=== PATIENT | female | born 1955 | race Caucasian/White ===

== ENCOUNTER 2018-08-01 20:07 | Inpatient (IN) | payer OTHER ==
--- NOTE | 2018-07-14 22:30 | NUR ---
PT. STILL AWAKE. ENCOURAGED TO CALL FOR ANY HELP SHE MAY NEED. NO SOB. DENIES ANY PAIN AT THIS TIME. CALL LIGHT WITH IN EACH. Addendum: 08/05/18 at 0208 by Chasidy Rader RN CHARTING FOR 08/04/18
[~2018-08-01] VITALS: Ht 154.9 cm; Wt 36.3 kg
[2018-08-01 20:07] VITALS: BP 92/60
--- NOTE | 2018-08-01 20:10 | NUR ---
62 Y/O F BIBA W/C/O "INCREASED RESPIRATORY EFFORT." PER EMS PT WAS DISCHARGED FROM [facility] YESTERDAY AND WAS TOLD SHE HAS PNUEMONIA. PT C/O SOB TODAY. UPON ASSESSMENT PT RR EVEN/UNLABORED. O2 SAT 95% ON RA. PT DENIES N/V/D; SKIN IS INTACT, PINK/WARM/DRY; PT CACHETIC;AAOX4, PERRL, PT UNABLE TO AMBULATE DUE TO SEVERE WEAKENESS; LUNGS DIMINISHED BL, BREATHING UNLABORED; HR EVEN AND REGULAR, BL PERIPHERAL PULSES PRESENT; BS ACTIVE X4, NO TENDERNESS TO PALPATION, NO HEPATOSPLENOMEGALLY PALPATED, RESONANT TO PERCUSSION; PT DENIES ANY FEVER, CP, OR COUGH AT THIS TIME; PT STATES 0/10 PAIN AT THIS TIME; VSS; PATIENT POSITIONED FOR COMFORT; HOB ELEVATED; BEDRAILS UP X2; BED DOWN. ER MD MADE AWARE OF PTS CONDITION.
--- NOTE | 2018-08-01 20:11 | NUR ---
PT HAS HX OF R BREAST MASTECTOMY, BREAST CA, UTERINE CA, AND PENUMONIA. NKA
--- NOTE | 2018-08-01 20:45 | NUR ---
PT REFUSED TO BE PUT ON A BED CONTEH AND STATES, "I CAN'T GO." PT ALSO REFUSES STRAIGHT CATH AT THIS TIME. DR. LEONARD MADE AWARE,STATED THATS FINE.
--- NOTE | 2018-08-01 21:03 | NUR ---
X-RAY AT BEDSIDE
[2018-08-01 21:30] LABS: HEMATOCRIT 36.8 % (36-48); HEMOGLOBIN 12.4 g/dL (12.0-16.0); RED BLOOD CELL COUNT(AUTO) 4.27 MIL/uL (4.20-5.40); WHITE BLOOD COUNT (AUTO) 8.1 K/uL (4.8-10.8)
[2018-08-01 21:31] LABS: BASOPHILS % (AUTO) 0.3 % (0.0-2.0); EOSINOPHILS % (AUTO) 2.3 % (0.0-4.0); LYMPHOCYTES % (AUTO) 8.2 % (20.5-51.1); MEAN CORPUSCULAR HEMOGLOBIN 29 pg (27-31); MEAN CORPUSCULAR HGB CONC 34 g/dL (33-37); MEAN CORPUSCULAR VOLUME 86.2 fL (80-94); MONOCYTES % (AUTO) 8.1 % (1.7-9.3); NEUTROPHILS % (AUTO) 81.1 % (42.2-75.2); PLATELET COUNT (AUTO) 347 K/uL (140-450); RED CELL DISTRIBUTION WIDTH 13.8 % (11.6-13.7)
--- NOTE | 2018-08-01 21:38 | NUR ---
EKG PERFORMED AT BEDSIDE. PT COVERED IN GOWN AND BLANKET DURING PROCEDURE WITH FAMILY MEMBER PRESENT. NORMAL SINUS RHYTHM
[2018-08-01 21:43] LABS: PROTHROMBIN TIME 11.5 secs (10.8-13.4)
--- NOTE | 2018-08-01 21:45 | NUR ---
DR. OG MADE AWARE THAT PTS FAMILY WANTS TO TALK TO HIM
[2018-08-01 21:47] LABS: ALBUMIN 2.3 g/dL (3.4-5.0); ANION GAP 9.3 (8-16); CARBON DIOXIDE 26.6 mmol/L (21-32); CREATININE 0.6 mg/dL (0.6-1.3); TOTAL BILIRUBIN 0.3 mg/dL (0.0-1.0)
[2018-08-01 21:51] LABS: POTASSIUM 2.9 mmol/L (3.5-5.1)
--- NOTE | 2018-08-01 22:15 | NUR ---
DR. OG MADE AWARE THAT PT AND FAMILY WANTS TO TALK WITH HIM
--- NOTE | 2018-08-01 22:30 | NUR ---
PT RESTING COMFORTABLY IN BED. NO S/S OF DISTRESS NOTED. FAMILY AT BEDSIDE
--- NOTE | 2018-08-01 22:50 | NUR ---
DR. OG UPDATED ON PTS STATUS
--- NOTE | 2018-08-01 23:00 | NUR ---
DR. OG EVALUATING AT BEDSIDE
[2018-08-01] MEDS ORDERED: cefTRIAXone 1,000 MG VIAL ONE (23:04)
[2018-08-01] MEDS ORDERED: POTASSIUM CHLORIDE 10 MEQ TABER PO ONE (23:55)
[2018-08-02] MEDS: AZITHROMYCIN 500 MG in DEXTROSE 5% 250 ML IV SCH (00:20)
[2018-08-02] MEDS ORDERED: ACETAMINOPHEN 325 MG TAB PO PRN (00:20)
[2018-08-02] MEDS ORDERED: POTASSIUM CHL 20MEQ/D5-NS 1,000 ML IV ONE (00:20)
[2018-08-02] MEDS ORDERED: ONDANSETRON 4 MG/2 ML VIAL IVP PRN (00:20)
--- NOTE | 2018-08-02 00:44 | NUR ---
PT TAKEN TO CT VIA ANTHONY
--- NOTE | 2018-08-02 01:00 | NUR ---
Patient will be admitted to care of DR. RODRIGUEZ. Admited to MED/SURG. Will go to room 105 A. Belongings list completed. Report to LARRY BAUER.
--- NOTE | 2018-08-02 01:00 | NUR ---
PT ESCORTED TO FLOOR VIA W/C WITH RESHMA BAUER. PT AMBULATED TO ROOM 105A. REPORT GIVEN AT BEDSIDE FOR CONTINUITY OF CARE. PT IS AO X 4 AND HER SKIN IS INTACT. PT APPEARS CACHETIC. SHE IS ON 2 LITERS VIA N/C FOR COMFORT. PT IS A 62 YEAR OLD WOMEN WITH A HX OF COPD , RIGHT AND LEFT BREAST CANCER (LYMPH NODES REMOVED IN BREASTS), UTERINE CA, CERVICAL CA, PN. PT HAS A 20 G ON LEFT AC FLUSHED PATENT.
--- NOTE | 2018-08-02 01:30 | NUR ---
PT IN BED WITH SIDE RAILS UP X 2 , PT ANSWERED ADMISSION QUESTIONS AND ORDERED FLUIDS GIVEN VIA IV. PT DENIES PAIN AT THIS TIME AND SAYS SHE JUST WANTS TO SLEEP. PT ORIENTED TO ROOM, BED AND HOSPITAL ROUTINES. LIGHTS OUT AND CALL WORRELL IN REACH,. NO S/S OF PAIN OR DISTRESS NOTED. V/S FOLLOWS : T 98.2 P 85 R 18 B/P 96/68 02 99% WITH 2 L VIA N/C.
[2018-08-02] MEDS ORDERED: AZITHROMYCIN 500 MG INJ VIAL IV ONE (02:03)
--- NOTE | 2018-08-02 02:30 | NUR ---
PT ASLEEP NO S/S OF PAIN OR DISTRESS NOTED NO ADVERSE EFFECTS OF ABT. BED IS LOW AND CALL WORRELL IN REACH. LUNG SOUNDS DIMINISHED ON BASE OF LEFT LUNG , CONSISTENT WITH FINDINGS OF X RAY. B/S HYPOACTIVE. IV SITE FLUSHED PATENT AND RUNNING 5D N/S WITH 20 MEQ AT 80 MLS/HR.
[2018-08-02 03:34] VITALS: BP 96/68
--- NOTE | 2018-08-02 07:33 | NUR ---
GAVE REPORT TO PEDRO RN DAYSHIFT NURSE FOR CONTINUITY OF CARE, PT ASLEEP SIDE RAILS UP X2 CALL WORRELL IN REACH. NO S/S OF NICK OR DISTRESS NOTED.
--- NOTE | 2018-08-02 07:34 | NUR ---
REPORT RECEIVED FROM INSPECTOR [employer] BILL JUAREZ SLEEPING QUIETLY IN NAD, RESP EVEN UNLABORED ON 2L NC, SKIN WARM DRY COLOR WNL, AROUSES EASILY, DENIES ANY PAIN OR DISCOMFORT, PLAN OF CARE REVIEWED, ALL SAFETY MEASURES IN PLACE, WILL CONTINUE TO MONITOR.
[2018-08-02 08:00] VITALS: BP 102/64
--- NOTE | 2018-08-02 08:36 | NUR ---
PATIENT HAS BEEN SCREENED AND CATEGORIZED HIGH NUTRITION RISK. PATIENT WILL BE SEEN WITHIN 1-2 DAYS OF ADMISSION. 08/02/18 08/03/[address]
[2018-08-02] MEDS: ENOXAPARIN 40 MG/0.4 ML SYR SUBQ SCH (09:00)
--- NOTE | 2018-08-02 10:00 | NUR ---
DR. RODRIGUEZ AT BEDSIDE.
--- NOTE | 2018-08-02 10:27 | NUR ---
AM MEDS GIVEN VIA SUBQ. TOLERATED PROCEDURE WELL. NO SOB AND RESPIRATORY DISTRESS NOTED. NO COMPLAINTS OF PAIN.PT VOIDED IN BEDPAN X1. WILL CONTINUE TO MONITOR.
--- NOTE | 2018-08-02 14:15 | NUR ---
PT C/O SOB, INCREASED RR AT 30 BREATHS/MIN, NO WHEEZING UPON AUSCULTATION. INFORMED RT FOR ALBUTEROL VIA NEBULIZATION Q6 PRN DOSE. WILL FOLLOW UP W/ RT AND FREQUENT CHECKS DONE.
--- NOTE | 2018-08-02 14:26 | NUR ---
ADMISSION CHART REVIEW DONE INITIAL REVIEW FAXED TO [facility] [phone] PHONE COOKIE [phone]
--- NOTE | 2018-08-02 14:31 | NUR ---
08/02/18 RD INITIAL ASSESSMENT COMPLETED PLEASE REFER TO NUTRITION ASSESSMENT UNDER CARE ACTIVITY FOR ESTIMATED NUTRITIONAL NEEDS. 1. CONTINUE REGULAR DIET TOLERATED 2. ENCOURAGED INCREASING PO INTAKE 3. RECOMMENDED HIGH CALORIE FOODS LIKE ENSURE AND HEALTH SHAKES 4. PROVIDED EDUCATION TO INCREASE PO INTAKE 5. RD TO FOLLOW-UP 2-3 DAYS, HIGH RISK GISELL FAYE RD
[2018-08-02] MEDS: ALBUTEROL 0.083% 2.5 MG/3 ML NEBU INH PRN (14:45)
--- NOTE | 2018-08-02 14:45 | NUR ---
RT CAME IN EARLIER TO GIVE ALBUTEROL VIA NEBULIZATION. PT AWAKE, ALERT IN BED IN BED RESTING. NO RESPIRATORY DISTRESS. BREATHING EVEN AND UNLABORED. WILL CONTINUE TO MONITOR FOR SOB, RESPIRATORY DISTRESS & OTHER KENNY.
[2018-08-02 16:00] VITALS: BP 94/63
--- NOTE | 2018-08-02 17:10 | NUR ---
DR. GALLOWAY AT BEDSIDE.BRONCHOSCOPY SCHEDULED ON Sunday
--- NOTE | 2018-08-02 18:45 | NUR ---
TALKED TO BERNA HEMPHILL REGARDING POC. SHE'S AWARE PLAN FOR BRONCHOSCOPY. PT SITTING UP, EATING [employer] AND DRINKING STARBUCKS.DENIES ANY PAIN OR DISCOMFORT. WILL CONTINUE TO MONITOR.
--- NOTE | 2018-08-02 19:20 | NUR ---
REPORT RECEIVED FROM TREMAINE BAUER DAYSHIFT NURSE AT BEDSIDE FOR CONTINUITY OF CARE, PT IN STABLE CONDITION.
--- NOTE | 2018-08-02 19:20 | NUR ---
REPORT GIVEN TO PM SHIFT NURSE, PT IN STABLE CONDITION.
[2018-08-02 20:00] VITALS: BP 106/67
--- NOTE | 2018-08-02 20:00 | NUR ---
PT AOX 4, SITTING IN LOW BED WITH SIDE RAILS UP X 2 EATING FAST FOOD BROUGHT IN BY FAMILY. PT C/O OF MODERATE BACK PAIN 04/21 WILL MEDICATE WITH PRN NORCO, V/S AT THIS TIME ARE FOLLOWS : T 97.4 P 98 R 20 B/P 106/67 02 100 WITH 2 L VIA N/C. PT HAS NO S/S OF DISTRESS ANS NO SOB NOTED. IV 20G LEFT F/A INTACT AND SALINE LOCKED.
[2018-08-02] MEDS: HYDROcodone/APAP 5/325 MG 1 TAB TAB PO PRN (20:38)
--- NOTE | 2018-08-02 20:45 | NUR ---
PT RECEIVED PRN NORCO FOR 6/10 PAIN. WILL MONITOR FOR EFFECT.
[2018-08-03] VITALS: BP 90/60
[2018-08-03] MEDS: AZITHROMYCIN 500 MG in DEXTROSE 5% 250 ML IV SCH (00:09)
[2018-08-03] MEDS: DEXT 5% / NACL 0.45% 1,000 ML IV SCH ×2 (00:17→21:12)
--- NOTE | 2018-08-03 00:21 | NUR ---
PT SLEEPING SOUNDLY NO S/S OF PAIN OR DISTRESS NOTED. NEW ORDER NOTED FORM DR. JOSE THE COVERING MD FOR QUADEER, D51/2NS AT 50MLS/HR. ABT ZITHROMAX IN PROGRESS IV SITE FLUSHED PATENT AND NO S/S OF INFILTRATION NOTED. ALL FALLS PRECAUTIONS IN PLACE, AND CALL WORRELL IN REACH.
[2018-08-03 04:00] VITALS: BP 95/63
--- NOTE | 2018-08-03 04:30 | NUR ---
PT ASLEEP IN LOW BED BUT AROUSABLE TO NAME. IV SITE INTACT AND RUNNING D5 AND 1/2 NS AT 50MLS/HR. IV SITE FLUSHED PATENT, NO C/O VOICED AND NO S/S OF PAIN OR DISTRESS NOTED. V/S FOLLOWS T 98.5 P 74 R 18 B/P 95/63 02 99% WITH 2 L VIA N/C. BED LOW, CALL WORRELL IN REACH AND ALL FALLS PRECAUTIONS IN PLACE.
[2018-08-03 07:16] LABS: BASOPHILS % (AUTO) 0.8 % (0.0-2.0); EOSINOPHILS # (AUTO) 0.2 K/uL (0-0.4); HEMATOCRIT 31.2 % (36-48); HEMOGLOBIN 10.6 g/dL (12.0-16.0); LYMPHOCYTES # (AUTO) 0.6 K/uL (2.5-16.5); LYMPHOCYTES % (AUTO) 11.7 % (20.5-51.1); MEAN CORPUSCULAR HEMOGLOBIN 29 pg (27-31); MEAN CORPUSCULAR HGB CONC 34 g/dL (33-37); MEAN CORPUSCULAR VOLUME 84.4 fL (80-94); MONOCYTES # (AUTO) 0.5 K/uL (0.8-1.0); MONOCYTES % (AUTO) 10.1 % (1.7-9.3); NEUTROPHILS # (AUTO) 3.8 K/uL (1.8-7.7); NEUTROPHILS % (AUTO) 73.4 % (42.2-75.2); PLATELET COUNT (AUTO) 258 K/uL (140-450); RED BLOOD CELL COUNT(AUTO) 3.69 MIL/uL (4.20-5.40); RED CELL DISTRIBUTION WIDTH 14.7 % (11.6-13.7); WHITE BLOOD COUNT (AUTO) 5.2 K/uL (4.8-10.8)
--- NOTE | 2018-08-03 07:20 | NUR ---
REPORT GIVEN TO TRELL RN DAYSHIFT NURSE FOR CONTINUITY OF CARE, PT IN STABLE CONDITION
--- NOTE | 2018-08-03 07:21 | NUR ---
RECEIVED BEDSIDE REPORT FROM METAL BENCH PATTERNMAKER. NO DISTRESS NOTED. PATIENT HAS LEFT AC IT IS CLEAN DRY AND INTACT. BED ON LOWEST POSITION. PATIENT HAS CALL LIGHT WITHIN REACH. WILL CONTINUE TO MONITOR
[2018-08-03] MEDS: ALBUTEROL 0.083% 2.5 MG/3 ML NEBU INH PRN (07:25)
[2018-08-03 08:00] VITALS: BP 96/66
[2018-08-03 08:04] LABS: ALBUMIN 1.7 g/dL (3.4-5.0); ANION GAP 10.5 (8-16); CARBON DIOXIDE 25.4 mmol/L (21-32); CREATININE 0.3 mg/dL (0.6-1.3); MAGNESIUM 1.5 mg/dL (1.8-2.4); POTASSIUM 3.9 mmol/L (3.5-5.1); TOTAL BILIRUBIN 0.2 mg/dL (0.0-1.0)
[2018-08-03] MEDS: ENOXAPARIN 40 MG/0.4 ML SYR SUBQ SCH (09:08)
--- NOTE | 2018-08-03 11:15 | NUR ---
IS RESTING IN BED DENIES ANY PAIN. NO DISTRESS NOTED PATIENT IS ON 2L OF OXYGEN VIA NC.
[2018-08-03] MEDS: HYDRAGUARD CREAM TP SCH (13:00)
--- NOTE | 2018-08-03 13:00 | NUR ---
PATIENT IS RESTING IN BED. IV ON L AC IS INFUSING 50ML/HR OF D5NS. NO SIGNS OF INFILTRATION. PATIENT DENIES ANY PAIN. CALL LIGHT WITHIN REACH. WILL CONTINUE TO MONITOR.
--- NOTE | 2018-08-03 15:30 | NUR ---
PATIENT IN BED RESTING COMFORTABLY WATCHING TELEVISION, DENIES ANY PAIN AT THIS TIME. VITAL SIGNS WITHIN NORMAL LIMITS. HAS CALL LIGHT WITHIN REACH. BED ON LOWEST POSITION.
[2018-08-03 15:45] VITALS: BP 91/58
[2018-08-03] MEDS ORDERED: MAG SULF 2000 MG/WATER PREMIX 50 ML IV ONE (17:50)
--- NOTE | 2018-08-03 19:20 | NUR ---
ENDORSED PATIENT TO DIE DESIGNER NURSE. PATIENT IS RESTING QUIETLY. IN STABLE CONDITION.
--- NOTE | 2018-08-03 19:25 | NUR ---
RECEIVED FROM AM RN IN BED AWAKE AND ALERT. IVF SITE TO LAC #20 INTACT AND NO INFILTRATION NOTED. RE-ORIENTED TO CALL LIGHT USE FOR ANY HELP SHE MAY NEED OR IF IN PAIN. DENIES ANY PAIN AT THIS TIME. TELEMETRY MONITORING. DX. OF SOB AND LUNG MASS. AFEBRILE. ABLE TO VERBALIZE NEEDS WELL.
--- NOTE | 2018-08-03 22:43 | NUR ---
PT. PREVIOUS IVF DISCONTINUED RT PT. STATED IT HURTS IN THAT SITE LAC. DISCONTINUED WITH TIP INTACT. INSERTED NEW LINE TO LEFT FOREARM #22 . TOLERATED WELL. WITH GOOD BLOOD RETURN. PT. ABLE TO USE CALL LIGHT FOR HELP. A/OX 4. BED ALARM ON .
[2018-08-04 00:31] VITALS: BP 93/60
[2018-08-04] MEDS: AZITHROMYCIN 500 MG in DEXTROSE 5% 250 ML IV SCH (00:49)
[2018-08-04] MEDS: HYDRAGUARD CREAM TP SCH ×2 (01:43→13:00)
--- NOTE | 2018-08-04 01:57 | NUR ---
SLEEPING AT THIS TIME. NO RESTLESSNESS. CALL LIGHT WITH IN REACH AT ALL TIMES.
--- NOTE | 2018-08-04 03:00 | NUR ---
SLEEPING WELL. NO RESTLESSNESS.
--- NOTE | 2018-08-04 05:35 | NUR ---
AWAKE AND REQUESTED FOR BEDPAN TO URINATE. NO PAIN COMPLAINTS DONE. A/O X 4. ABLE TO VERBALIZE NEEDS WELL.
--- NOTE | 2018-08-04 05:37 | NUR ---
UA SPECIMEN SENT TO LAB REQUESTED BY AM SHIFT.
--- NOTE | 2018-08-04 07:24 | NUR ---
ENDORSED TO THE NEXT RN FOR CONTINUITY OF CARE. NO COMPLAINTS DONE.
--- NOTE | 2018-08-04 07:25 | NUR ---
RECEIVED BEDSIDE REPORT. PATIENT IS ASLEEP. IV CLEAN AND INFUSING WILL CONTINUE TO MONITOR.
[2018-08-04 07:38] LABS: APPEARANCE,URINE CLEAR (CLEAR); BILIRUBIN,URINE NEGATIVE (NEGATIVE); BLOOD, URINE NEGATIVE (NEGATIVE); COLOR,URINE YELLOW (YELLOW); LEUKOCYTE ESTERASE ,URINE NEGATIVE (NEGATIVE); NITRITE, URINE NEGATIVE (NEGATIVE); UGLUCOSE NEGATIVE (NEGATIVE)
[2018-08-04 08:00] VITALS: BP 93/66
[2018-08-04] MEDS: HYDROcodone/APAP 5/325 MG 1 TAB TAB PO PRN (09:34)
[2018-08-04] MEDS: ENOXAPARIN 40 MG/0.4 ML SYR SUBQ SCH (09:36)
--- NOTE | 2018-08-04 10:00 | NUR ---
PATIENT IS ASLEEP. DIDNT EAT HER BREAKFAST. PT STATES HAS NO APPETITE OFFERED HER JELLO AND APPLE JUICE. WILL MONITOR. CALL LIGHT WITHIN REACH
--- NOTE | 2018-08-04 14:00 | NUR ---
PATIENT IS AWAKE. TALKING TO FAMILY AT BEDSIDE. CALL LIGHT WITHIN REACH.
[2018-08-04] MEDS: DEXT 5% / NACL 0.45% 1,000 ML IV SCH (15:26)
[2018-08-04 16:00] VITALS: BP 101/67
--- NOTE | 2018-08-04 18:45 | NUR ---
NPO POST MIDNIGHT SIGNAGE PLACE BY THE PT'S DOOR. PT VERBALIZED UNDERSTANDING.
--- NOTE | 2018-08-04 19:15 | NUR ---
ENDORSED PATIENT TO SUPERVISOR FILTRATION NURSE. PATIENT IS STABLE CONDITION. INFORMED NURSE OF PATIENTS NPO STATUS.
--- NOTE | 2018-08-04 19:18 | NUR ---
RECEIVED FROM AM RN IN BED AWAKE AND ALERT. NO COMPLAINTS DONE. CALL LIGHT WITH IN REACH. ABLE TO USE IT WELL FOR HELP. VERBALIZES NEEDS WELL. AFEBRILE. PT. IVF SITE TO LFA INTACT AND NO INFILTRATION OR PAIN NOTED. CARE PLANS FOR THE NIGHT DISCUSSED WITH HER. BED ALARM ON.
--- NOTE | 2018-08-04 23:30 | NUR ---
PT. SLEEPING. NO RESTLESSNESS. CALL LIGHT WITH IN REACH AT ALL TIMES. NO SOB.
[2018-08-05] VITALS (7 sets, daily range): BP systolic 98–132; BP diastolic 58–67
[2018-08-05] MEDS: AZITHROMYCIN 500 MG in DEXTROSE 5% 250 ML IV SCH (00:42)
[2018-08-05] MEDS: HYDRAGUARD CREAM TP SCH ×2 (00:43→13:40)
--- NOTE | 2018-08-05 06:14 | NUR ---
SLEEPING WELL THIS SHIFT. NO PAIN COMPLAINTS. NPO SINCE MIDNIGHT IN PREPARATION FOR PLANNED LUNG BIOPSY TODAY. PT. AWARE. ABLE TO VERBALIZE NEEDS WELL.
--- NOTE | 2018-08-05 07:20 | NUR ---
REPORT RECEIVED FROM NIGHT SHFIT NURSE, PT SLEEPING BUT AROUSES EASILY, RESP EVEN UNLABORED, RA, SKIN WARM DRY COLOR WNL, PT DENIES PAIN OR DISCOMFORT, PLAN OF CARE REVIEWED, ALL SAFETY MEASURES IN PLACE, WILL CONTINUE TO MONITOR.
--- NOTE | 2018-08-05 07:43 | NUR ---
PATIENT WAS ASSESSED BY ISABELL MOON [place] INDICATED AT THIS TIME.
[2018-08-05] MEDS: ENOXAPARIN 40 MG/0.4 ML SYR SUBQ SCH (08:25)
[2018-08-05] MEDS ORDERED: PROPOFOL 200 MG/20 ML VIAL IV ONE (09:20)
[2018-08-05] MEDS ORDERED: SEVOFLURANE 250 ML BTL INH ONE (09:20)
[2018-08-05] MEDS ORDERED: SUCCINYLCHOLINE CHLORIDE 200 MG/10 ML VIAL IV ONE (09:20)
[2018-08-05] MEDS ORDERED: fentaNYL 0.05 MG/ML VIAL ONE (09:37)
[2018-08-05] MEDS: LACTATED RINGERS 1,000 ML IV SCH ×3 (10:31→20:04)
[2018-08-05] MEDS ORDERED: ONDANSETRON 4 MG/2 ML VIAL IVP PRN (10:35)
--- NOTE | 2018-08-05 11:25 | NUR ---
PT RETURNED FROM PACU, PT AWAKE, IN NAD, RESP EVEN UNLABORED, FREQ COUGHS WITH WHITE SPUTUM, VITALS STABLE, PT PLACED ON WOUND BED FOR PREVENTATIVE MEASURES, CALL LIGHT WITHIN REACH, WILL CONTINUE TO MONTIOR
--- NOTE | 2018-08-05 12:50 | NUR ---
PT SLEEPING QUIETLY IN NAD, RESP EVEN UNLABORED, COUGHING SUBSIDED, WILL CONTINUE TO MONTIOR
[2018-08-05] MEDS: DEXT 5% / NACL 0.45% 1,000 ML IV SCH (13:40)
--- NOTE | 2018-08-05 15:03 | NUR ---
08/05/18 RD FOLLOW UP COMPLETED PLEASE REFER TO NUTRITION ASSESSMENT UNDER CARE ACTIVITY FOR ESTIMATED NUTRITIONAL NEEDS. 1. CONTINUE NPO MEDICALLY NECESSARY 2. WHEN PT IS MEDICALLY STABLE CONSIDER ADVANCING TO REGULAR DIET TOLERATED 3. ENCOURAGED INCREASING PO INTAKE 4. RECOMMENDED HEALTH SHAKES TID 5. PROVIDED EDUCATION TO INCREASE PO INTAKE 6. RD TO FOLLOW-UP 2-3 DAYS, HIGH RISK GISELL FAYE, ANDRZEJ
--- NOTE | 2018-08-05 15:54 | NUR ---
PT SLEEPING QUIELY IN NAD, RESP EVEN UNALBORED, AROUSES EASILY, DENIES PAIN OR DISCOMFORT, IVF INFUSING WELL, SITE CLEAR, NPO, AWAITING FOR UROLOGY, DENIES ANY IMMEDIATE NEEDS, VITALS STABLE WILL CONTINUE TO MONITOR Addendum: 08/05/18 at 1556 by Sherri Martin RN WRONG PATIENT, PLEASE DISREGARD ABOVE NOTE
--- NOTE | 2018-08-05 15:56 | NUR ---
PT SLEEPING QUIELY IN NAD, RESP EVEN UNALBORED, AROUSES EASILY, DENIES PAIN OR DISCOMFORT, IVF INFUSING WELL, SITE CLEAR, DENIES ANY IMMEDIATE NEEDS, VITALS STABLE WILL CONTINUE TO MONITOR
--- NOTE | 2018-08-05 17:20 | NUR ---
PT SITTING UP QUIETLY IN NAD, RESP EVEN UNLABORED, SKIN WARM DRY COLOR WNL, PT REPORTS OCCASIONAL COUGH, SOME BLOOD TINGED SPUTUM NOTED, NO ACTIVE BLEEDING AT THIS TIME, WILL CONTINUE TO MONITOR. PT DENIES OTHER NEEDS, CALL WORRELL WITHIN REACH, SIDE RAILS UP, BED LOCKED IN LOW POSITION.
--- NOTE | 2018-08-05 19:30 | NUR ---
RECEIVED REPORT FROM [facility] NURSE BRIGITTE AT BEDSIDE FOR CONTINUITY OF CARE. PT AAOX4. PT IV NOTED LFA 22G. RESTRICTIONNO BP OR IV IN RIGHT ARM. NO SOB NO S/S OF DISTRESS ON O2 2L NC. SKIN INTACT. BED LOWERED CALL LIGHT WITHIN REACH WILL CONTINUE TO MONITOR.
--- NOTE | 2018-08-05 22:05 | NUR ---
1900 PLACED PT ON 2LNC. PATIENTS SATS WERE 89% ON ROOM AIR
--- NOTE | 2018-08-05 23:04 | NUR ---
STARTED ROCEPHIN ON PT. PT HAS O2 2L NC. PT HAS NO SOB NO S/S OF DISTRESS. WOKE UP UPON ME HANGING NEW IV: LET HER KNOW I WAS ADMINISTRATION ABX PT SEEMED BOTHERED I WOKE HER UP. AND SHE WENT BACK TO SLEEP. WILL CONTINUE TO MONITOR.
[2018-08-06] VITALS: BP 111/69
[2018-08-06] MEDS: AZITHROMYCIN 500 MG in DEXTROSE 5% 250 ML IV SCH (00:17)
[2018-08-06] MEDS: HYDRAGUARD CREAM TP SCH ×2 (01:00→13:00)
[2018-08-06] MEDS: LACTATED RINGERS 1,000 ML IV SCH (03:11)
--- NOTE | 2018-08-06 03:12 | NUR ---
NO SOB NO S/S OF DISTRESS ON O2 2L NC. WILL CONTINUE TO MONITOR.
--- NOTE | 2018-08-06 07:33 | NUR ---
ENDORSED REPORT TO [facility] DICKIN[facility] AT BEDSIDE FOR CONTINUITY OF CARE.
--- NOTE | 2018-08-06 07:34 | NUR ---
RECEIVED REPORT FROM THE PASSENGER AGENT NURSE AT BEDSIDE FOR CONTINUITY OF CARE. PT IS AWAKE, DROWSY. INTRODUCED MYSELF AND UPDATED THE BOARD. PT IS HERE FOR SOB AND LUNG MASS. NO RESP DISTRESS. NC ON 2L INFUSING. IV ON L FA 22G D5 NS INFUSING AT 50ML/HR. LBM 08/03. PT REFUSED BREAKFAST. JUST WANTED JELLO. DOESN'T WANT TO BE BOTHERED. PLAN: GO HOME ON HOSPICE. WILL CONTINUE TO MONITOR PT.
--- NOTE | 2018-08-06 07:49 | NUR ---
ASSESSED PATIENT WHO IS AWAKE, ALERT AND IN BED. PATIENT IS ON 2L/M VIA NASAL CANNULA, SPO2 96. HEART RATE 100. PATIENT HAS A STRONG AND EFFECTIVE COUGH. B/S: DIMINISHED BILATERALLY. PATIENT DID NOT WANT BREATHING TREATMENT. REMINDED PATIENT OF PRN TREATMENTS IF NEEDED.
[2018-08-06 08:00] VITALS: BP 101/66
[2018-08-06] MEDS: DEXT 5% / NACL 0.45% 1,000 ML IV SCH (08:30)
--- NOTE | 2018-08-06 08:45 | NUR ---
WENT TO THE ROOM TO ADMINISTER LOVENOX. PT REFUSED. PT REFUSED IVF WELL. PT STATED, "I'M DONE. I DON'T WANT ANYTHING." WILL CONTINUE TO MONITOR PT.
[2018-08-06] MEDS: ENOXAPARIN 40 MG/0.4 ML SYR SUBQ SCH (09:00)
--- NOTE | 2018-08-06 09:30 | NUR ---
TODD FROM [facility] CALLED. WILL CALL KANCHAN CORONEL AND WILL BE BY TO ASSESS PT.
[2018-08-06] MEDS ORDERED: LEVO750T2 PO (10:16)
[2018-08-06] MEDS ORDERED: ACET-2863 PO (10:16)
--- NOTE | 2018-08-06 10:30 | NUR ---
DR RODRIGUEZ HERE TO SEE PT. PT TO GO HOME WITH HOSPICE.
--- NOTE | 2018-08-06 12:15 | NUR ---
HOSPICE NURSE HERE TO ASSESS PT. [facility] CORONEL IS ALSO HERE. PT IS D/C WITH [facility]. JUANCARLOS BROOKS WILL ARRANGE ALL TRANSPORTATION. WILL LET ME KNOW WHAT TIME FOR WELDING ROBOT OPERATOR. WILL START ON D/C.
--- NOTE | 2018-08-06 15:14 | NUR ---
Emergency Management Coordinator Note: I received a call from patient's niece Roxanne Fong, she stated patient does not want to be discharge home with home health services, she wants to return home with hospice services. Roxanne stated patient met with Ernestina from [facility] / today and she is in agreement with returning home with [facility] services. I encouraged Roxanne to allow patient to express her medical decisions to Roxanne PERES in agreement with this.
--- NOTE | 2018-08-06 15:30 | NUR ---
DC INSTRUCTIONS GIVEN. PT VERBALIZED UNDERSTANDING. PT IS GOING HOME WITH HOSPICE. REMOVED IV, CANNULA INTACT. NO BLEEDING NOTED. REMOVED ID BANDS. WILL HAVE TIN STACKER GET PT READY FOR TRANSPORT. PERSONAL BELONGINGS GATHERED. WILL CONTINUE TO MONITOR PT.
[2018-08-06 16:00] VITALS: BP 97/70
--- NOTE | 2018-08-06 16:00 | NUR ---
[facility] CALLED. NEED NEW ORDERS FROM DR RODRIGUEZ. CALLED AND GOT TELEPHONE ORDER FOR HOSPICE. FAXED OVER TO [facility]. D/T THE ORDER WAIT, TRANSPORT DELAYED TO 1800.
--- NOTE | 2018-08-06 18:00 | NUR ---
[facility] HERE TO TAKE HER HOME. PERSONAL BELONGINGS WITH PT. PT IN STABLE CONDITION.
== END 2018-08-06 18:00 | disposition hospice, home (50) | DRG 720 ==
LOC: MED 20:07 → MTU 08-02 00:27
PROVIDERS: ADMIT Hospitalist; ATTEND Hospitalist
PROC: 0BB98ZX Excision of Lingula Bronchus, Via Natural or Artificial Opening Endoscopic, Diagnostic (ICD-10-PCS; 2018-08-05)
PROC: 0BB88ZX Excision of Left Upper Lobe Bronchus, Via Natural or Artificial Opening Endoscopic, Diagnostic (ICD-10-PCS; principal; 2018-08-05 09:20)
DX: A41.9 Sepsis, unspecified organism (principal); E43 Unspecified severe protein-calorie malnutrition; J96.10 Chronic respiratory failure, unspecified whether with hypoxia or hypercapnia; J18.8 Other pneumonia, unspecified organism; I31.3 Pericardial effusion (noninflammatory); R64 Cachexia; E83.42 Hypomagnesemia; E87.1 Hypo-osmolality and hyponatremia; J44.0 Chronic obstructive pulmonary disease with (acute) lower respiratory infection; E88.09 Other disorders of plasma-protein metabolism, not elsewhere classified; F17.210 Nicotine dependence, cigarettes, uncomplicated; E87.6 Hypokalemia; J98.19 Other pulmonary collapse; M81.0 Age-related osteoporosis without current pathological fracture; Z85.42 Personal history of malignant neoplasm of other parts of uterus; Z90.11 Acquired absence of right breast and nipple; Z68.1 Body mass index [BMI] 19.9 or less, adult; Z85.3 Personal history of malignant neoplasm of breast
CPT/HCPCS: 36415; 71045; 71250; 80053; 81003; 82550; 83605; 83735; 83880; 84484; 85025; 85610; 85730; 87040; 87081; 87086; 93005; 94640; 96365; 99285; J0171; J0330; J0456; J0696; J1650; J2704; J3010; J3475; J7060; J7613; Q0092